=== PATIENT | male | born 1960 | race Caucasian/White ===

== ENCOUNTER 2016-10-08 09:02 | Emergency (ER) | payer SELFPAY ==
--- NOTE | ~2016-10-08 | ER ---
PATIENT'S NAME: UZAIR [facility]PC[facility] AGE: 56 Y [address] ROOM: [place] [id number] LOCATION: [facility] ADMIT DATE: 10/08/2016 ER/Outpatient Report DISCHARGE DATE: 10/08/2016 FAMILY PHYSICIAN: Clemente Marc MD ATTENDING PHYSICIAN: Regino Ovalles CHIEF COMPLAINT: Right elbow pain. HISTORY OF PRESENT ILLNESS: Mr. Concepcion notes that for the last 3 days, he has had pain in his right elbow. He states it is not actually his elbow, but just above his elbow. It is sharp and electric like and radiates up to his shoulder. Nothing seems to make it better or worse. He has been taking Advil with no improvement. He had a flare of this similar episode about 2 weeks ago and then again about 10 years ago. He denies any other symptoms and is otherwise feeling okay. The pain this morning was particularly bothersome, and that is why he came in to see me today. He denies any history of intravenous drug use, but was drinking last night and does drink daily. He does smoke. 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 He denies any other symptoms at this time and is otherwise feeling well. PAST MEDICAL HISTORY: As documented on the record and reviewed by me. SOCIAL HISTORY: Documented on the record and reviewed by me. MEDICATIONS: Documented on the record and reviewed by me. ALLERGIES: DOCUMENTED ON THE RECORD AND REVIEWED BY ME. REVIEW OF SYSTEMS: All systems were reviewed and negative except as noted in the HPI. PHYSICAL EXAMINATION: VITAL SIGNS: Blood pressure is 137/88, pulse 131, respiratory rate 16, temperature 100.3, SpO2 is 95% on room air. Pain is rated at 7/10. GENERAL: Age-appropriate male, upright on exam table. No apparent pain or distress. NEUROLOGIC: Awake and alert. GCS 15. No focal deficits. No asymmetry. HEENT: Normocephalic, atraumatic. Eyes are PERRL. Oropharynx clear. NECK: Supple. Trachea is midline. PATIENT'S NAME: UZAIR [facility] AGE: 56 Y [address] ROOM: [place] [id number] LOCATION: [facility] ADMIT DATE: 10/08/2016 ER/Outpatient Report DISCHARGE DATE: 10/08/2016 FAMILY PHYSICIAN: Clemente Marc MD ATTENDING PHYSICIAN: Regino Ovalles CHEST: Heart is tachycardic. No murmurs. LUNGS: Clear to auscultation bilateral. No rhonchi, wheezes, or rales. ABDOMEN: Soft, nontender, and nondistended. No rebound or guarding. BACK: Normal to inspection and palpation. EXTREMITIES: Unremarkable on exam. The right elbow was examined. There is no area of fullness, fluctuance, erythema, or warmth of the humerus, elbow, or forearm. There is no tenderness to palpation of the elbow itself. Approximately 3 cm proximal to the olecranon process, there is an area of slight tenderness. No fluctuance or warmth appreciated there. The hand is neurovascularly intact. LABORATORY DATA AND X-RAYS: None. IMPRESSION: Right-sided distal triceps pain. EMERGENCY DEPARTMENT COURSE: The patient was seen and evaluated as above. With his vital signs and this vague pain, I did recommend laboratory evaluation for possible infection, however, the patient declined. He has requested some pain medication, which I will give him tramadol. I have instructed him to follow up with his primary care physician, Dr. Clemente Marc, tomorrow if not completely better. Discussed that he should not be operating heavy machinery. If he has any worsening, he agreed to return immediately to the emergency department for re- evaluation. I explained my concern that there could be infection, however, he declined further evaluation today. I have recommended fluids and antipyretics as well. He did state he felt a little nervous and thought that would be contributing to his fast heart rate. All questions were answered, and the patient was discharged in stable condition. MD NELLY LING/genoveva /[id number] d: 10/08/16 1518 t: 10/17/16 1001, OUTPATIENT REPORT
== END 2016-10-08 09:22 | disposition disaster alternative care site (69) ==
LOC: GMED 09:02
DX: M79.1 Myalgia (principal); I10 Essential (primary) hypertension; F17.210 Nicotine dependence, cigarettes, uncomplicated; Z79.899 Other long term (current) drug therapy